=== PATIENT | male | born 1955 | race Caucasian/White ===

== ENCOUNTER 2020-01-20 16:40 | Outpatient (REF) | payer MEDICARE, SELFPAY ==
[2020-01-20 18:04] LABS: MANUAL DIFF FLAG NO
[2020-01-20 18:07] LABS: Basophils Absolute Auto 0.1 X10*3/uL (0.0-0.2); Eosinophils Absolute Auto 0.9 X10*3/uL (0.0-0.4); Eosinophils Percent Auto 11.5 % (0-4); Hematocrit 36.6 % (42-52); Hemoglobin 12.1 g/dl (14.0-18.0); Imm Gran Abs Auto 0.02 X10*3/uL (0.00-0.03); Imm Gran Pct Auto 0.3 % (0.0-0.4); Lymphocytes Absolute Auto 1.8 X10*3/uL (1.2-4.9); Lymphocytes Percent Auto 22.8 % (20-40); Mean Corpuscular HGB Conc 33.1 g/dl (31.0-36.0); Mean Corpuscular Volume 93.8 fL (80-98); Mean Platelet Volume 10.6 fL (9.4-12.4); Monocytes Percent Auto 12.3 % (2-11); Neutrophils Percent Auto 52.1 % (45-73); Platelet Count 304 X10*3/uL (160-400); Red Cell Distribution Width 14.2 % (11.0-16.0); White Blood Count 7.7 X10*3/uL (4.8-10.8)
[2020-01-20 18:48] LABS: Alanine Aminotransferase 18 U/L (0-40); Albumin Level 4.7 g/dL (3.5-5.0); Alkaline Phosphatase 100 U/L (39-117); Anion Gap 14 (12-20); Aspartate Amino Transferase 31 U/L (5-37); Bilirubin Total 0.8 mg/dL (0.0-1.0); Blood Urea Nitrogen 23 mg/dL (9-16); Calcium 9.5 mg/dL (8.4-10.2); Carbon Dioxide 25 mmol/L (22-29); Chloride 101 mmol/L (96-108); Cholesterol 151 mg/dL; Estimated Glomerular Filt Rate 54; Glucose Fasting 102 mg/dL (60-99); HDL Cholesterol 95 mg/dL; LDL Cholesterol Calculated 41 mg/dl; Potassium 4.5 mmol/l (3.3-5.1); Sodium 135 mmol/L (135-145); Triglycerides 76 mg/dL
== END 2020-01-20 16:41 | disposition home or self-care (01) ==
LOC: HO.LAB 16:40
PROVIDERS: Visit Provider Internal Medicine
DX: I10 Essential (primary) hypertension (principal); E78.5 Hyperlipidemia, unspecified
CPT/HCPCS: 36415; 80053; 80061; 85025

== ENCOUNTER → 2020-04-12 14:11 | Outpatient (BNVA) | payer MEDICARE, SELFPAY | PROVIDERS: PCP Internal Medicine; Visit Provider Hospitalist | DX: G47.33 Obstructive sleep apnea (adult) (pediatric) (principal); R91.8 Other nonspecific abnormal finding of lung field; R05 Cough; J44.9 Chronic obstructive pulmonary disease, unspecified | CPT/HCPCS: 99212 ==

== ENCOUNTER 2020-05-04 12:44 | Outpatient (REF) | payer MEDICARE, SELFPAY ==
--- NOTE | ~2020-05-04 | CT_ITS ---
EXAMINATION: CT CHEST WITHOUT CONTRAST CLINICAL INFORMATION: Obstructive sleep apnea COMPARISON: Previous chest CT September 2018 TECHNIQUE: Multidetector volumetric CT imaging of the chest was done. Axial MIP volume rendering provided. Sagittal and coronal reformatted images were obtained. This CT examination was performed using dose optimization techniques as appropriate, variously including the following: *Automated exposure control *Adjustment of mA and/or kV according to patient size (this includes techniques or standardized protocols for targeted exams where dose is matched to indication/reason for exam; i.e. extremities or head) *Use of iterative reconstruction technique DLP: 289 mGy-cm FINDINGS: LUNGS: There is a 0.6 x 1 cm abnormal parenchymal density in the right upper lobe axial image 184 series 5 that is stable. There is a 6 mm peripheral or subpleural right upper lobe nodule adjacent to the major fissure probably representing a subpleural lymph node axial image 261 series 5 that is stable. There is scarring or chronic subsegmental atelectasis in the right middle lobe that is stable. There are increased peripheral interstitial markings in the right lower lobe and some traction bronchiolectasis and small calcifications and subtler changes of increased peripheral reticulation in the peripheral or subpleural left lower lobe questionable for mild interstitial disease. No endobronchial or endotracheal lesion is seen. MEDIASTINUM: There are stable mediastinal lymphadenopathy. The heart does not appear enlarged. There is coronary artery calcification. The ascending thoracic aorta is upper normal in size. There is no pericardial effusion. PLEURA: There is no pleural effusion. No pleural mass or thickening. AXILLA: No lymphadenopathy. UPPER ABDOMEN: There is a 3 cm cyst in the upper pole of the left kidney that is stable. There is a 1.7 cm high attenuation lesion exophytic to the medial upper pole the right kidney that is stable and may represent a hyperdense cyst. There is diverticulosis of the colon. OSSEOUS STRUCTURES: There are degenerative changes of the spine and shoulders. There are old left rib fractures. There are are postsurgical changes to the lower cervical spine. There is a 4 mm anterior subluxation of C6 and C7 with respect to T1 that is unchanged. CT/CT chest wo con IMPRESSION: Stable abnormal parenchymal density in the right upper lobe and probable peripheral or subpleural lymph node in the right upper lobe adjacent to the major fissure. Question mild interstitial changes lung bases, right greater than left. Moderate coronary artery calcification and upper normal-size ascending thoracic aorta..
== END 2020-05-04 12:45 | disposition home or self-care (01) ==
LOC: HO.CT 12:44
PROVIDERS: Visit Provider Hospitalist
DX: G47.33 Obstructive sleep apnea (adult) (pediatric) (principal); R91.8 Other nonspecific abnormal finding of lung field
CPT/HCPCS: 71250

== ENCOUNTER 2021-03-17 14:19 | Outpatient (REF) | payer MEDICARE, SELFPAY ==
[2021-03-17 17:04] LABS: Alanine Aminotransferase 39 U/L (0-40); Anion Gap 13 (12-20); Aspartate Amino Transferase 44 U/L (5-37); Blood Urea Nitrogen 48 mg/dL (9-16); Calcium 9.9 mg/dL (8.4-10.2); Carbon Dioxide 28 mmol/L (22-29); Chloride 102 mmol/L (96-108); Cholesterol 186 mg/dL; Estimated Glomerular Filt Rate 50; Glucose Fasting 103 mg/dL (60-99); HDL Cholesterol 89 mg/dL; LDL Cholesterol Calculated 86 mg/dl; Potassium 4.9 mmol/L (3.3-5.1); Sodium 138 mmol/L (135-145); Triglycerides 59 mg/dL
== END 2021-03-17 14:20 | disposition home or self-care (01) ==
LOC: HO.HMGCLDS 14:19
PROVIDERS: PCP Internal Medicine; Visit Provider Internal Medicine
DX: E78.5 Hyperlipidemia, unspecified (principal); I10 Essential (primary) hypertension
CPT/HCPCS: 36415; 80048; 80061; 84450; 84460

== ENCOUNTER 2022-01-09 12:37 | Outpatient (REF) | payer MEDICARE, SELFPAY ==
[2022-01-09 14:31] LABS: MANUAL DIFF FLAG NO
[2022-01-09 14:40] LABS: Basophils Absolute Auto 0.1 X10*3/uL (0.0-0.2); Basophils Percent Auto 0.7 % (0-2); Eosinophils Absolute Auto 0.3 X10*3/uL (0.0-0.4); Eosinophils Percent Auto 4.6 % (0-4); Hemoglobin 11.5 g/dl (14.0-18.0); Imm Gran Abs Auto 0.04 X10*3/uL (0.00-0.03); Imm Gran Pct Auto 0.5 % (0.0-0.4); Lymphocytes Absolute Auto 0.9 X10*3/uL (1.2-4.9); Mean Corpuscular HGB Conc 34.8 g/dl (31.0-36.0); Mean Corpuscular Volume 91.9 fL (80.0-98.0); Mean Platelet Volume 10.4 fL (9.4-12.4); Monocytes Absolute Auto 1.1 X10*3/uL (0.1-1.2); Monocytes Percent Auto 15.3 % (2-11); Neutrophils Percent Auto 66.9 % (45-73); Platelet Count 277 X10*3/uL (160-400); Red Blood Count 3.59 X10*6/uL (4.60-5.80); Red Cell Distribution Width 13.9 % (11.0-16.0); White Blood Count 7.5 X10*3/uL (4.8-10.8)
[2022-01-09 14:57] LABS: Alanine Aminotransferase 30 U/L (0-40); Anion Gap 17 (12-20); Aspartate Amino Transferase 50 U/L (5-37); Blood Urea Nitrogen 44 mg/dL (9-16); Carbon Dioxide 26 mmol/L (22-29); Chloride 97 mmol/L (96-108); Cholesterol 204 mg/dL; Estimated Glomerular Filt Rate 47; Glucose Fasting 103 mg/dL (60-99); HDL Cholesterol 104 mg/dL; Iron 133 mcg/dL (45-160); LDL Cholesterol Calculated 87 mg/dl; Percent Iron Saturation 37 % (15-50); Potassium 4.9 mmol/L (3.3-5.1); Sodium 135 mmol/L (135-145); Total Iron Binding Capacity 358 mcg/dL (228-428); Triglycerides 67 mg/dL; Unsaturated Iron Binding 225 ug/dL; Uric Acid 3.8 mg/dL (3.4-7.0)
[2022-01-09 15:14] LABS: PSA,Total (Free>4and<10) 0.93 ng/mL (0.00-4.00)
[2022-01-09 15:35] LABS: Estimated Average Glucose 100 mg/dL; Hemoglobin A1c % 5.1 %
== END 2022-01-09 12:38 | disposition home or self-care (01) ==
LOC: HO.HMGCLDS 12:37
PROVIDERS: PCP Internal Medicine; Visit Provider Internal Medicine
DX: Z12.5 Encounter for screening for malignant neoplasm of prostate (principal); D64.9 Anemia, unspecified; E78.5 Hyperlipidemia, unspecified; I10 Essential (primary) hypertension; N40.1 Benign prostatic hyperplasia with lower urinary tract symptoms; R35.1 Nocturia; R73.01 Impaired fasting glucose; Z87.39 Personal history of other diseases of the musculoskeletal system and connective tissue
CPT/HCPCS: 36415; 80048; 80061; 83036; 83540; 84153; 84450; 84460; 84550; 85025

== ENCOUNTER 2022-06-13 14:19 | Outpatient (REF) | payer MEDICARE, SELFPAY ==
[2022-06-13 17:10] LABS: MANUAL DIFF FLAG NO
[2022-06-13 17:24] LABS: Basophils Absolute Auto 0.1 X10*3/uL (0.0-0.2); Basophils Percent Auto 0.9 % (0-2); Eosinophils Absolute Auto 0.4 X10*3/uL (0.0-0.4); Eosinophils Percent Auto 6.2 % (0-4); Hematocrit 35.5 % (42.0-52.0); Hemoglobin 11.7 g/dl (14.0-18.0); Imm Gran Abs Auto 0.04 X10*3/uL (0.00-0.03); Imm Gran Pct Auto 0.6 % (0.0-0.4); Lymphocytes Absolute Auto 1.4 X10*3/uL (1.2-4.9); Lymphocytes Percent Auto 21.3 % (20-40); Mean Corpuscular Hemoglobin 29.9 pg (27.0-33.0); Mean Corpuscular Volume 90.8 fL (80.0-98.0); Mean Platelet Volume 10.7 fL (9.4-12.4); Monocytes Absolute Auto 1.2 X10*3/uL (0.1-1.2); Monocytes Percent Auto 18.4 % (2-11); Neutrophils Absolute Auto 3.4 x10*3/uL (2.0-8.3); Neutrophils Percent Auto 52.6 % (45-73); Platelet Count 324 X10*3/uL (160-400); Red Blood Count 3.91 X10*6/uL (4.60-5.80); Red Cell Distribution Width 14.8 % (11.0-16.0); White Blood Count 6.4 X10*3/uL (4.8-10.8)
[2022-06-13 17:48] LABS: Alanine Aminotransferase 38 U/L (0-40); Anion Gap 14 (12-20); Aspartate Amino Transferase 49 U/L (5-37); Blood Urea Nitrogen 36 mg/dL (9-16); Calcium 9.6 mg/dL (8.4-10.2); Carbon Dioxide 28 mmol/L (22-29); Chloride 99 mmol/L (96-108); Cholesterol 201 mg/dL; Estimated Glomerular Filt Rate 47; Glucose Fasting 105 mg/dL (60-99); HDL Cholesterol 97 mg/dL; Iron 42 mcg/dL (45-160); LDL Cholesterol Calculated 89 mg/dl; PSA,Total (Free>4and<10) 0.84 ng/mL (0.00-4.00); Percent Iron Saturation 13 % (15-50); Potassium 4.9 mmol/L (3.3-5.1); Sodium 136 mmol/L (135-145); Total Iron Binding Capacity 324 mcg/dL (228-428); Triglycerides 75 mg/dL; Unsaturated Iron Binding 282 ug/dL; Uric Acid 3.5 mg/dL (3.4-7.0)
== END 2022-06-13 14:20 | disposition home or self-care (01) ==
LOC: HO.HMGCLDS 14:19
PROVIDERS: PCP Internal Medicine; Visit Provider Internal Medicine
DX: D64.9 Anemia, unspecified (principal); J44.9 Chronic obstructive pulmonary disease, unspecified; F41.1 Generalized anxiety disorder; E78.5 Hyperlipidemia, unspecified; I10 Essential (primary) hypertension; N40.1 Benign prostatic hyperplasia with lower urinary tract symptoms; R35.1 Nocturia; Z12.5 Encounter for screening for malignant neoplasm of prostate; Z87.39 Personal history of other diseases of the musculoskeletal system and connective tissue
CPT/HCPCS: 36415; 80048; 80061; 83540; 84153; 84450; 84460; 84550; 85025

== ENCOUNTER 2023-04-11 13:51 | Outpatient (REF) | payer MEDICARE, SELFPAY ==
[2023-04-11 16:02] LABS: MANUAL DIFF FLAG NO
[2023-04-11 16:16] LABS: Basophils Absolute Auto 0.1 X10*3/uL (0.0-0.2); Basophils Percent Auto 0.7 % (0-2); Eosinophils Absolute Auto 0.5 X10*3/uL (0.0-0.4); Hematocrit 34.7 % (42.0-52.0); Hemoglobin 11.6 g/dl (14.0-18.0); Imm Gran Abs Auto 0.02 X10*3/uL (0.00-0.03); Imm Gran Pct Auto 0.3 % (0.0-0.4); Lymphocytes Absolute Auto 1.5 X10*3/uL (1.2-4.9); Lymphocytes Percent Auto 21.3 % (20-40); Mean Corpuscular HGB Conc 33.4 g/dl (31.0-36.0); Mean Corpuscular Volume 95.9 fL (80.0-98.0); Mean Platelet Volume 10.8 fL (9.4-12.4); Monocytes Absolute Auto 1.2 X10*3/uL (0.1-1.2); Monocytes Percent Auto 17.4 % (2-11); Neutrophils Absolute Auto 3.7 x10*3/uL (2.0-8.3); Neutrophils Percent Auto 53.3 % (45-73); Platelet Count 294 X10*3/uL (160-400); Red Blood Count 3.62 X10*6/uL (4.60-5.80); Red Cell Distribution Width 14.7 % (11.0-16.0); White Blood Count 6.9 X10*3/uL (4.8-10.8)
[2023-04-11 16:38] LABS: Alanine Aminotransferase 35 U/L (0-40); Aspartate Amino Transferase 51 U/L (5-37); Cholesterol 170 mg/dL (<200); HDL Cholesterol 94 mg/dL (>40); Iron 45 mcg/dL (45-160); LDL Cholesterol Calculated 67 mg/dL (<100); Percent Iron Saturation 14 % (15-50); Total Iron Binding Capacity 320 mcg/dL (228-428); Triglycerides 48 mg/dL (<150); Unsaturated Iron Binding 275 ug/dL
[2023-04-11 16:46] LABS: Vitamin D 25-OH Total 50.7 ng/mL (>30)
[2023-04-11 16:50] LABS: Uric Acid 4.2 mg/dL (3.4-7.0)
== END 2023-04-11 13:52 | disposition home or self-care (01) ==
LOC: HO.HMGCLDS 13:51
PROVIDERS: PCP Internal Medicine; Visit Provider Internal Medicine
DX: N28.9 Disorder of kidney and ureter, unspecified (principal); D64.9 Anemia, unspecified; E78.5 Hyperlipidemia, unspecified; I10 Essential (primary) hypertension; Z87.39 Personal history of other diseases of the musculoskeletal system and connective tissue
CPT/HCPCS: 36415; 80061; 82306; 83540; 84450; 84460; 84550; 85025

== ENCOUNTER 2023-05-14 10:08 | Outpatient (AMB) | payer MEDICARE, SELFPAY ==
--- NOTE | 2023-05-14 10:13 | MHC.PC.OV ---
Vital Signs 05/14/23 10:15 Height 5 ft 10 in Weight 206 lb BMI 29.6 BP 135/70 Blood Pressure Location Lt brachial Position Sitting Pulse 65 Pulse Source Pulse Oximeter Pulse Oximetry (%) 97 Oxygen Delivery Method Room Air Intake Visit Reasons: f/u labs Intake Note: Pt is here today for his lab results Allergies amoxicillin [Augmentin] Allergy (Unknown, Verified 05/14/23 10:17) hives clavulanic acid [Augmentin] Allergy (Unknown, Verified 05/14/23 10:17) hives levofloxacin [Levaquin] Allergy (Unknown, Verified 05/14/23 10:17) hives Penicillins [PENICILLINS] Allergy (Unknown, Unverified 05/14/23 10:17) ANAPHYLAXIS Sulfa (Sulfonamide Antibiotics) Allergy (Unknown, Verified 05/14/23 10:17) rash Medication List - Last Reconciled 05/14/23 by Yaquelin Lima MD allopurinol 300 mg PO DAILY amlodipine 10 mg PO DAILY atorvastatin 40 mg PO DAILY finasteride 5 mg PO DAILY hydroxyzine HCl 25 mg PO BID PRN irbesartan 300 mg PO DAILY multivitamin 1 tab PO DAILY omeprazole 20 mg PO DAILY paroxetine HCl 40 mg PO DAILY zolpidem 10 mg PO BEDTIME PRN Tobacco use date assessed: 05/14/23 Fall risk assessment: No Falls in past year Last assessed Fall Risk: 05/14/23 Dental Screening Dental Screen Date: 05/14/23 Did you have a dental visit in the last 12 months?: No Was dental information given to patient?: Patient has dentist HPI f/u labs HPI Details 67-year-old male with hypertension, hyperlipidemia, benign prostatic hyperplasia, and generalized anxiety disorder, here today for follow-up. He has been compliant with taking his medications, had recent fasting labs done which showed presence of anemia with hemoglobin /hematocrit at 11.6 and 34.7% respectively. Denies any unusual bleeding however he is overdue for his screening colonoscopy. Latest fasting labs also showed fasting lipids, uric acid level, vitamin-D are all within normal limits. Has been complaining of intermittent episodes of shortness of breath especially on moderate exertion., noted to have a systolic murmur and bilateral carotid bruits on exam today. Denies having chest pain, no lightheadedness, or palpitations. Has benign prostatic hyperplasia previously seen by Dr. Anderson in 2019 but was lost to follow-up after the pandemic currently on finasteride. Last PSA a year ago was within normal limits. Has chronic insomnia for which he takes zolpidem almost on a nightly basis. [facility] Medical History (Updated 05/19/23 @ 17:29 by Yaquelin Lima MD) Chronic insomnia Sensorineural hearing loss (SNHL) of both ears Systolic murmur of aorta Bilateral carotid bruits Renal insufficiency Insomnia Hx of gout Anemia Decreased hearing BPH associated with nocturia COPD (chronic obstructive pulmonary disease) Cough RITA (obstructive sleep apnea) Pulmonary nodules Dyslipidemia Essential hypertension Surgical History History of surgery History of arthroscopy of left knee History of inguinal hernia History of ankle surgery Family History Father Cancer of prostate Alcoholism HTN (hypertension) CVD (cardiovascular disease) Mother COPD (chronic obstructive pulmonary disease) Cancer of pancreas Sister Depression Brother No problems noted. Sister No problems noted. Daughter No problems noted. Social History Housing: Condominium Patient Tobacco Use Status: Former Tobacco user e-Cigarette/Vaping Use: Never Used service: No Current occupational status: retired Cognitive needs: No Hearing needs: No Vision needs: Yes Questionnaire PHQ-9 Over the last 2 weeks, how often have you been bothered by any of the following problems? 1. Little interest or pleasure in doing things: not at all 2. Feeling down, depressed, or hopeless: not at all 3. Trouble falling or staying asleep, or sleeping too much: not at all 4. Feeling tired or having little energy: not at all 5. Poor appetite or overeating: not at all 6. Feeling bad about yourself - or that you are a failure or have let yourself or your family down: not at all 7. Trouble concentrating on things, such as reading the newspaper or watching television: not at all 8. Moving or speaking so slowly that other people could have noticed. Or the opposite - being so fidgety or restless that you have been moving around a lot more than usual: not at all 9. Thoughts that you would be better off or of hurting yourself in some way: not at all Total score: 0 Depression Screening Interpretation: Negative Depression Screening Done: Yes 56031 - PHQ-9 Billing: Yes Source: Developed by Drs. Nash Rose, Pinky Huerta, Chilango Torres and colleagues, with an educational nanci from [employer]. Thrive Questionnaire Date Thrive assessed: 05/14/23 I am a: Patient What is your living situation today?: I have a steady place to live Within the past 12 months, did the food you bought not last and you didn't have the money to get more?: Never true Within the past 12 months, did you worry whether your food would run out before you got money to buy more?: Never true Do you have trouble paying for medicines?: No Do you have trouble getting transportation to medical appointments?: No Do you have trouble paying your heating and electricity bill?: No Do you have trouble taking care of your child, family member or friend?: No Do you have trouble with day-to-day activities such as bathing, preparing meals, shopping, managing finances, etc.?: No Are you currently unemployed and looking for a job?: No Are you interested in more education?: No THRIVE Score: 0 AUDIT C Alcohol Use Questionnaire (AUDIT-C) 1. How often do you have a drink containing alcohol?: 2-3 times a week 2. How many drinks containing alcohol do you have on a typical day when you are drinking?: 3 or 4 3. How often do you have six or more drinks on one occasion?: Monthly Total Score: 6 EN-7 AMB Questionnaire EN-7 Date EN - 7 assessed: 05/14/23 Feeling nervous, anxious, or on edge: 0 = Not at all Not being able to stop or control worryin = Not at all Worrying too much about different things: 0 = Not at all Trouble relaxin = Not at all Being so restless that it is hard to sit still: 0 = Not at all Becoming easily annoyed or irritable: 0 = Not at all Feeling afraid as if something awful might happen: 0 = Not at all Total EN-7 score (0-4 normal; 5-9 mild; 10-14 moderate; 15-21 severe): 0 Source: Developed by Drs. Nash Rose, Pinky Huerta, Chilango Torres and colleagues, with an educational nanci from [employer]. EN-7 Assessment Billing EN-7 Assessment Tool: EN-7 Assessment 35185 Review of Systems Const Reports difficulty sleeping, Denies frequent falls, Denies headache(s), Denies night sweats, Denies poor appetite and Denies weakness Eyes Denies change in vision ENT Denies vertigo, Denies dizziness, Denies headache(s), Denies nasal congestion and Denies nasal discharge Card Denies chest pain, Denies rapid heart rate, Denies irregular heart rhythm, Denies lightheadedness and Denies dyspnea Resp Denies chest congestion, Denies cough, Denies dyspnea and Denies wheezing GI Denies abdominal pain Denies difficulty urinating, Reports urinary frequency and Denies urinary hesitancy Musc Denies no additional complaints Skin/Breast Denies lesions and Denies rash Neuro Denies vertigo, Denies dizziness, Denies frequent falls, Denies headache(s) and Denies weakness Psych Reports no additional complaints Endo Denies polyphagia and Denies polydipsia Deniz/Lymph Denies easy bleeding and Denies easy bruising Aller/Immun Denies wheezing Physical exam (Primary Care) Vital Signs: Last Vital Signs Pulse 65 05/14/23 10:15 BP 135/70 05/14/23 10:15 Pulse Ox 97 05/14/23 10:15 Oxygen Delivery Method Room Air 05/14/23 10:15 BMI result Body Mass Index 29.6 Tobacco/Smoking Status: Tobacco use Status Tobacco use date assessed 05/14/23 05/14/23 10:18 Patient Tobacco Use Status Former Tobacco user 05/14/23 10:13 e-Cigarette/Vaping Use Never Used 05/14/23 10:13 PHQ-9: PHQ-9 Score PHQ-9: Total score 0 05/19/23 15:42 Depression Screening Interpretation: Negative Thrive Assessment: Date of Thrive Assessment Date Thrive assessed 05/14/23 05/14/23 10:20 Results Reviewed Results Reviewed: Name: Gerry Brennan Age/Sex: 67/M : 1955 Unit#: [id number] Attend Dr: Yaquelin Lima MD Re04/11/23 Status: DEP REF Location: [facility] Disch: SPEC : [id number] LISA: 04/11/23 STATUS: COMP REQ : [id number] RECD: 04/11/23-[address]: Yaquelin Lima MD COMP: 04/11/23 ENTERED: 04/11/23 [facility] DR: ORDERED: CBC Auto Diff Test Result Flag Reference WBC 6.9 4.8-10.8 X10*3/uL RBC 3.62 L 4.60-5.80 X10*6/uL HGB 11.6 L 14.0-18.0 g/dl HCT 34.7 L 42.0-52.0 % MCV 95.9 80.0-98.0 fL MCH 32.0 27.0-33.0 pg MCHC 33.4 31.0-36.0 g/dl RDW 14.7 11.0-16.0 % PLT 294 160-400 X10*3/uL MPV 10.8 9.4-12.4 fL Neut Pct Auto 53.3 45-73 % ImGran Pct Auto 0.3 0.0-0.4 % Lymp Pct Auto 21.3 20-40 % [place] Pct Auto 17.4 H 2-11 % Eos Pct Auto 7.0 H 0-4 % Baso Pct Auto 0.7 0-2 % NRBC Pct Auto 0.0 0.0-0.2 /100WBC ANC Neut Abs # 3.7 2.0-8.3 x10*3/uL ImGran Abs Auto 0.02 0.00-0.03 X10*3/uL Lymph Abs Auto 1.5 1.2-4.9 X10*3/uL [place] Abs Auto 1.2 0.1-1.2 X10*3/uL Eos Abs Auto 0.5 H 0.0-0.4 X10*3/uL Baso Abs Auto 0.1 0.0-0.2 X10*3/uL NRBC Abs Auto 0.000 0.0-0.012 X10*3/uL NTERED: 04/11/23-1353 [facility] DR: ORDERED: Uric, IRON PROF, AST, ALT, Lipid Panel, Vitamin D 25-OH Test Result Flag Reference Uric Acid 4.2 3.4-7.0 mg/dL Iron 45 45-160 mcg/dL TIBC 320 228-428 mcg/dL Saturation 14 L 15-50 % UIBC 275 ug/dL AST (GOT) 51 H 5-37 U/L ALT (GPT) 35 0-40 U/L Triglyceride 48 <150 mg/dL Desirable Triglyceride: less than 150 mg/dL Borderline High Triglyceride 150-199 mg/dL High Triglyceride: 200-499 mg/dL Very High Triglyceride: greater than or equal to 5OO mg/dL Cholesterol 170 <200 mg/dL Desirable Cholesterol: less than 200 mg/dL Borderline High Cholesterol: 200-239 mg/dL High Cholesterol: greater than 239 mg/dL LDL Calculated 67 <100 mg/dL Desirable LDL: less than 100 mg/dL Near Optimal/Above Optimal LDL: 110-129 mg/dL Borderline High LDL: 130-159 mg/dL High LDL: 160-189 mg/dL Very High LDL: greater than or equal to 190 mg/dL HDL 94 >40 mg/dL Desirable HDL: greater than 40 mg/dL Note: This HDL assay may give artificially low results in patients with liver disease. Vit D 25-OH Tot 50.7 >30 ng/mL Health Based Reference Values* < 20 ng/mL Deficient 20-30 ng/mL Insufficient > 30 ng/mL Sufficient Normal fasting lipids, Assessment and Plan Assessment & Plan (1) Anemia: Code(s): D64.9 - Anemia, unspecified Qualifiers: Anemia type: unspecified type Qualified Code(s): D64.9 - Anemia, unspecified Plan: Discuss recent lab results with patient which showed presence of anemia with low iron, colonoscopy screening ordered (2) Generalized anxiety disorder: Code(s): F41.1 - Generalized anxiety disorder Plan: Stable and controlled on paroxetine 40 mg daily, will continue (3) Dyslipidemia: Code(s): E78.5 - Hyperlipidemia, unspecified Plan: Latest fasting labs showed LDL cholesterol at 67 mg/dL, with triglycerides 48 mg/dL and HDL cholesterol at 94 mg/dL. Continue with atorvastatin 40 mg daily, in addition to adherence to a low-cholesterol diet and getting regular exercise. Repeat fasting lipids in 3 months (4) Colon cancer screening: Code(s): Z12.11 - Encounter for screening for malignant neoplasm of colon Plan: referred to [facility] for screening colonoscopy ordered (5) Bilateral carotid bruits: Code(s): R09.89 - Other specified symptoms and signs involving the circulatory and respiratory systems Plan: Carotid ultrasound bilateral ordered (6) Systolic murmur of aorta: Code(s): I35.8 - Other nonrheumatic aortic valve disorders Plan: Transthoracic echocardiogram ordered (7) Essential hypertension: Code(s): I10 - Essential (primary) hypertension Plan: Blood pressure controlled, continued on irbesartan 300 mg daily and amlodipine 10 mg once a day (8) Shortness of breath on exertion: Code(s): R06.02 - Shortness of breath Plan: Transthoracic echocardiogram ordered (9) Renal insufficiency: Code(s): N28.9 - Disorder of kidney and ureter, unspecified Plan: Repeat compressive metabolic panel in 3 months, avoidance of NSAIDs advised (10) Hx of gout: Code(s): Z87.39 - Personal history of other diseases of the musculoskeletal system and connective tissue Plan: No recent attacks of gouty arthritis, will continue on allopurinol 200 mg daily (11) BPH associated with nocturia: Code(s): N40.1 - Benign prostatic hyperplasia with lower urinary tract symptoms; R35.1 - Nocturia Plan: Previously was seen by Dr. Anderson in 2019, started on finasteride, has lost to follow -up due to the pandemic, advised to continue with finasteride and schedule appointment for follow-up with Dr. Anderson (12) Chronic insomnia: Code(s): F51.04 - Psychophysiologic insomnia Plan: Continued on zolpidem, has been diagnosed to have obstructive sleep apnea unable to tolerate CPAP Orders: Orders CA echo transthoracic complete 05/14/23 I10 - Essential (primary) hypertension, I35.8 - Other nonrheumatic aortic valve disorders, R06.02 - Shortness of breath Comprehensive [place]. Panel Fast 08/03/23 D64.9 - Anemia, unspecified, E78.5 - Hyperlipidemia, unspecified, I10 - Essential (primary) hypertension, I35.8 - Other nonrheumatic aortic valve disorders, N28.9 - Disorder of kidney and ureter, unspecified, N40.1 - Benign prostatic hyperplasia with lower urinary tract symptoms, R09.89 - Other specified symptoms and signs involving the circulatory and respiratory systems, R35.1 - Nocturia, Z12.5 - Encounter for screening for malignant neoplasm of prostate, Z87.39 - Personal history of other diseases of the musculoskeletal system and connective tissue US carotid duplex BI 05/14/23 R09.89 - Other specified symptoms and signs involving the circulatory and respiratory systems Complete Blood Count Auto Diff 08/03/23 D64.9 - Anemia, unspecified, E78.5 - Hyperlipidemia, unspecified, I10 - Essential (primary) hypertension, I35.8 - Other nonrheumatic aortic valve disorders, N28.9 - Disorder of kidney and ureter, unspecified, N40.1 - Benign prostatic hyperplasia with lower urinary tract symptoms, R09.89 - Other specified symptoms and signs involving the circulatory and respiratory systems, R35.1 - Nocturia, Z12.5 - Encounter for screening for malignant neoplasm of prostate, Z87.39 - Personal history of other diseases of the musculoskeletal system and connective tissue IRON PROFILE 08/03/23 D64.9 - Anemia, unspecified, E78.5 - Hyperlipidemia, unspecified, I10 - Essential (primary) hypertension, I35.8 - Other nonrheumatic aortic valve disorders, N28.9 - Disorder of kidney and ureter, unspecified, N40.1 - Benign prostatic hyperplasia with lower urinary tract symptoms, R09.89 - Other specified symptoms and signs involving the circulatory and respiratory systems, R35.1 - Nocturia, Z12.5 - Encounter for screening for malignant neoplasm of prostate, Z87.39 - Personal history of other diseases of the musculoskeletal system and connective tissue Hemoglobin A1c 08/03/23 D64.9 - Anemia, unspecified, E78.5 - Hyperlipidemia, unspecified, I10 - Essential (primary) hypertension, I35.8 - Other nonrheumatic aortic valve disorders, N28.9 - Disorder of kidney and ureter, unspecified, N40.1 - Benign prostatic hyperplasia with lower urinary tract symptoms, R09.89 - Other specified symptoms and signs involving the circulatory and respiratory systems, R35.1 - Nocturia, Z12.5 - Encounter for screening for malignant neoplasm of prostate, Z87.39 - Personal history of other diseases of the musculoskeletal system and connective tissue Lipid Panel 08/03/23 D64.9 - Anemia, unspecified, E78.5 - Hyperlipidemia, unspecified, I10 - Essential (primary) hypertension, I35.8 - Other nonrheumatic aortic valve disorders, N28.9 - Disorder of kidney and ureter, unspecified, N40.1 - Benign prostatic hyperplasia with lower urinary tract symptoms, R09.89 - Other specified symptoms and signs involving the circulatory and respiratory systems, R35.1 - Nocturia, Z12.5 - Encounter for screening for malignant neoplasm of prostate, Z87.39 - Personal history of other diseases of the musculoskeletal system and connective tissue PSA,Total (Free>4and<10) 08/02/ D64.9 - Anemia, unspecified, E78.5 - Hyperlipidemia, unspecified, I10 - Essential (primary) hypertension, I35.8 - Other nonrheumatic aortic valve disorders, N28.9 - Disorder of kidney and ureter, unspecified, N40.1 - Benign prostatic hyperplasia with lower urinary tract symptoms, R09.89 - Other specified symptoms and signs involving the circulatory and respiratory systems, R35.1 - Nocturia, Z12.5 - Encounter for screening for malignant neoplasm of prostate, Z87.39 - Personal history of other diseases of the musculoskeletal system and connective tissue Referrals Gastroenterology Referral D64.9 - Anemia, unspecified, Z12.11 - Encounter for screening for malignant neoplasm of colon Medications: Refilled allopurinol 30 day supply while pt waits for mail order delivery 300 mg PO DAILY 90 tabs 4RF atorvastatin 40 mg PO DAILY 90 tabs 3RF irbesartan 300 mg PO DAILY 90 tabs 3RF amlodipine 10 mg PO DAILY 90 tabs 3RF finasteride 5 mg PO DAILY 90 tabs 3RF omeprazole 20 mg PO DAILY 90 caps 2RF paroxetine HCl 40 mg PO DAILY 90 tabs 3RF Coding Level of Care Code Est Pt Level 4 (23118) Diagnoses Anemia, unspecified type D64.9 Anemia type: unspecified type Generalized anxiety disorder F41.1 Dyslipidemia E78.5 Colon cancer screening Z12.11 Bilateral carotid bruits R09.89 Systolic murmur of aorta I35.8 Essential hypertension I10 Shortness of breath on exertion R06.02 Renal insufficiency N28.9 Hx of gout Z87.39 BPH associated with nocturia N40.1; R35.1 Chronic insomnia F51.04 Additional Codes EN-7 Assessment Billing - EN-7 Assessment Tool: EN-7 Assessment [id number] ([id number])
[2023-05-14 10:15] VITALS: BP 135/70; PULSE 65; O2SAT 97; BMI 29.6
== END 2023-05-14 15:42 | disposition home or self-care (01) ==
LOC: HO.HMGC 10:08
PROVIDERS: PCP Internal Medicine; Visit Provider Internal Medicine
DX: D64.9 Anemia, unspecified (principal); F41.1 Generalized anxiety disorder; E78.5 Hyperlipidemia, unspecified; Z12.11 Encounter for screening for malignant neoplasm of colon; R09.89 Other specified symptoms and signs involving the circulatory and respiratory systems; I35.8 Other nonrheumatic aortic valve disorders; I10 Essential (primary) hypertension; R06.02 Shortness of breath; N28.9 Disorder of kidney and ureter, unspecified; Z87.39 Personal history of other diseases of the musculoskeletal system and connective tissue; N40.1 Benign prostatic hyperplasia with lower urinary tract symptoms; R35.1 Nocturia
CPT/HCPCS: 99214

== ENCOUNTER → 2023-05-23 12:54 | Outpatient (REF) | payer MEDICARE, SELFPAY ==
--- NOTE | ~2023-05-23 | US_ITS ---
EXAMINATION: US EXTRACRANIAL CAROTID DUPLEX, BILATERAL CLINICAL INFORMATION: Systolic murmur. COMPARISON: None available. TECHNIQUE: Real-time ultrasound and Doppler techniques (integrating B-mode 2-D vascular images, Doppler spectral analysis and color-flow Doppler imaging) were utilized to interrogate the extracranial carotid arteries, the vertebral arteries and proximal subclavian arteries bilaterally. The degree of stenosis is determined by criteria similar to NASCET. FINDINGS: Right Side: 1. There is mild atherosclerotic plaque seen in the bifurcation/proximal ICA region. 2. The common carotid artery PSV proximally is 90 cm/s and distally 71 cm/s. 3. The proximal internal carotid artery velocities are 58 cm/s systolic and 12 cm/s diastolic. 4. The proximal external carotid artery PSV is 116 cm/s. 5. The vertebral artery shows antegrade flow. 6. The subclavian artery waveforms are normal. Left Side: 1. There is mild atherosclerotic plaque seen in the bifurcation/proximal ICA region. 2. The common carotid artery PSV proximally is 83 cm/s and distally 53 cm/s. 3. The proximal internal carotid artery velocities are 58 cm/s systolic and 16 cm/s diastolic. 4. The proximal external carotid artery PSV is 115 cm/s. 5. The vertebral artery shows antegrade flow. 6. The subclavian artery waveforms are normal. US/US carotid duplex BI IMPRESSION: 1. RIGHT: Minimal, non-hemodynamically significant stenosis of the proximal right internal carotid artery corresponding to a 0-49% stenosis by velocity criteria. 2. LEFT: Minimal, non-hemodynamically significant stenosis of the proximal left internal carotid artery corresponding to a 0-49% stenosis by velocity criteria.
--- NOTE | 2023-05-23 12:58 | CA_ITS ---
Transthoracic Echocardiogram Patient (Last, First, Middle): Gerry Brennan J Gender: Male Date of : 1955 Age: 67 Procedure Date: 05/23/2023 Procedure Type: Transthoracic Echocardiogram Location: OP Height: 177.8 cm Weight: 93.44 kg BSA: 2.11 m2 Heart Rate: bpm BP: 152 / 82 mmHg Pneumatic Hoist Operator: TO Referring MD: Yaquelin Lima MD Symptoms: I35.8 - Other nonrheumatic aortic valve disorders Study Quality: Technically Difficult/Contrast ECG Rhythm: Sinus Conclusions: - The left ventricular systolic function is normal. The visually estimated ejection fraction is between 55-60%. - There is moderate septal asymmetric hypertrophy. - There is mild aortic valve stenosis. There is mild aortic valve regurgitation. - There is mild dilatation of the ascending aorta measuring 4.30 cm. Findings Procedure Information Contrast agent, definity, is being given per protocol without apparent complications. The study quality is limited by patients body habitus. Left Ventricle Normal left ventricular cavity size. The left ventricular systolic function is normal. The visually estimated ejection fraction is between 55-60%. There is no evidence of regional wall motion abnormalities. Evidence suggests grade I (mild) diastolic dysfunction. There is moderate septal asymmetric hypertrophy. Right Ventricle Normal right ventricular cavity size and systolic function. Atria The left atrium is mildly dilated. The right atrium is normal in size. Aortic Valve There is a normal trileaflet aortic valve. There is mild calcification of the aortic valve. There is mild aortic valve stenosis. There is mild aortic valve regurgitation. Mitral Valve The mitral valve appears normal. There is mild mitral valve regurgitation. There is no mitral valve stenosis. Pulmonic Valve The pulmonic valve is likely normal. Tricuspid Valve There is trace tricuspid valve regurgitation. There is no evidence of pulmonary hypertension. Great Vessels The aortic arch is normal in size. There is mild dilatation of the ascending aorta measuring 4.30 cm. Venous The inferior vena cava is normal in size and collapses greater than 50% with inspiration. Pericardium/Pleural There is no evidence of pericardial effusion. Prior Study Comparison Changes noted compared to prior study dated: 10/25/2017. See comments on aortic valve/ascending aorta. Measurements M-Mode Liner Measurements Normals - Women/Men IVSd: 1.30 0.6-0.9/0.6-1.0 cm LVIDd: 5.30 3.9-5.3/4.2-5.9 cm LVIDs: 3.30 2.0-3.8 cm LVPWd: 1.30 0.6-0.9/0.6-1.0 cm Ao Root: 3.60 2.0-3.8 cm LA Diam: 3.50 2.7-3.8/3.0-4.0 cm 2D Linear Measurements IVSd: 4.40 0.6-0.9/0.6-1.0 cm LVOT Diam: 2.40 3.0+(-)1.3 cm 2D Systolic Function EF 4C: 51.80 >55% EF 2C: 56.40 >55% EF BiP: 53.10 >55% Mitral Valve MV Pk E: 0.62 MV PK A: 0.72 MV Decel Time: 179.00 E/A: 0.90 E'Lateral: 8.59 E'Medial: 5.44 E/E' Med: 11.40 E/E' Lat: 7.20 PHT: 52.00 MVA PHT: 4.23 Decel Pershing: 3.48 Aortic Valve AoV Pk Sean: 2.70 AoV Mn Sean: 1.97 AoV VTI: 0.63 AoV Pk Grad: 29.00 Aov Mn Grad: 17.00 KARLA Cont.VTI: 1.87 AI Pk Sean: 3.87 AI Pershing: 1.74 LVOT LVOT Pk Sean: 1.13 LVOT Mn Sean: 0.72 LVOT VTI: 0.26 LVOT Pk Grad: 5.00 LVOT Mn Grad: 2.00 LVOT Diam: 2.40 LVOT Area: 4.52 Diastolic Function MV Pk E: 0.62 MV Pk A: 0.72 E/A: 0.90 E'Medial: 5.44 E/E' Med: 11.40 E' Laterial: 8.59 E/E' Lat: 7.20 Right Ventricle TAPSE (mm): 24.30 TVS' Sean: 18.00 Tricuspid Valve TR Pk Sean: 1.76 TR Pk Grad: 12.00 RA Press: 3.00 RVSP: 15.00 Great Vessels Aorta Ao Root-MM: 3.60 2.0-3.7 cm Sinus of Valsalva: 3.62 2.0-3.5 cm Ao Asc: 4.30 2.1-3.4 cm Ao Arch: 2.90 Updated in Other Vendor System with Status of Final Vernon Ferrell MD electronically signed on 05/25/2023 12:57:27 PM with status of Final
== END ==
LOC: HO.CARD 12:54
PROVIDERS: PCP Internal Medicine; Visit Provider Internal Medicine
DX: R09.89 Other specified symptoms and signs involving the circulatory and respiratory systems (principal); I35.8 Other nonrheumatic aortic valve disorders; R06.02 Shortness of breath; I10 Essential (primary) hypertension
CPT/HCPCS: 93306; 93880; Q9957

== ENCOUNTER → 2023-05-23 12:58 | Outpatient (BNV) | payer MEDICARE, SELFPAY | PROVIDERS: PCP Internal Medicine; Visit Provider Internal Medicine | DX: I42.2 Other hypertrophic cardiomyopathy (principal); I35.2 Nonrheumatic aortic (valve) stenosis with insufficiency | CPT/HCPCS: 93306 ==

== ENCOUNTER 2023-08-12 12:37 | Outpatient (AMB) | payer MEDICARE, SELFPAY ==
--- NOTE | 2023-08-12 12:39 | MHC.OFFVIS ---
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 sob Allergies amoxicillin [Augmentin] Allergy (Unknown, Verified 05/14/23 10:17) hives clavulanic acid [Augmentin] Allergy (Unknown, Verified 05/14/23 10:17) hives levofloxacin [Levaquin] Allergy (Unknown, Verified 05/14/23 10:17) hives Penicillins [PENICILLINS] Allergy (Unknown, Unverified 05/14/23 10:17) ANAPHYLAXIS Sulfa (Sulfonamide Antibiotics) Allergy (Unknown, Verified 05/14/23 10:17) rash Medication List - Last Reconciled 08/12/23 by Vernon Ferrell MD allopurinol 300 mg PO DAILY amlodipine 10 mg PO DAILY atorvastatin 40 mg PO DAILY finasteride 5 mg PO DAILY hydroxyzine HCl 25 mg PO BID PRN irbesartan 300 mg PO DAILY multivitamin 1 tab PO DAILY omeprazole 20 mg PO DAILY paroxetine HCl 40 mg PO DAILY zolpidem 10 mg PO BEDTIME PRN HPI Comments Details: Gerry is here for consultation regarding shortness of breath. He states that he does have COPD at baseline but not usually short of breath. However, over the last few months, he has been having shortness of breath with activity. Also feeling some fatigue. No clear-cut anginal-type chest pains. No history of any coronary artery disease, myocardial infarction or cardiomyopathy. [facility] Medical History Dyspnea on minimal exertion Asymmetric septal hypertrophy Chronic insomnia Sensorineural hearing loss (SNHL) of both ears Systolic murmur of aorta Bilateral carotid bruits Renal insufficiency Insomnia Hx of gout Anemia Decreased hearing BPH associated with nocturia COPD (chronic obstructive pulmonary disease) Cough RITA (obstructive sleep apnea) Pulmonary nodules Dyslipidemia Essential hypertension Surgical History History of surgery History of arthroscopy of left knee History of inguinal hernia History of ankle surgery Family History Father Cancer of prostate Alcoholism HTN (hypertension) CVD (cardiovascular disease) Mother COPD (chronic obstructive pulmonary disease) Cancer of pancreas Sister Depression Brother No problems noted. Sister No problems noted. Daughter No problems noted. Social History Housing: Condominium Patient Tobacco Use Status: Former Tobacco user e-Cigarette/Vaping Use: Never Used service: No Current occupational status: retired Cognitive needs: No Hearing needs: No Vision needs: Yes Review of Systems Const Denies weakness ENT Denies dizziness Card Denies chest pain, Denies chest pain with activity, Denies syncope, Denies rapid heart rate, Denies pedal edema, Denies edema, Denies leg edema, Denies lightheadedness, Denies palpitations, Denies dyspnea, Denies dyspnea on exertion and Denies orthopnea Resp Denies cough, Denies dyspnea and Denies dyspnea on exertion GI Denies hematochezia and Denies change in stool character Musc Denies abnormal gait, Denies muscle cramps, Denies muscle weakness, Denies numbness, Denies radiating pain into limb and Denies tingling Neuro Denies abnormal gait, Denies dizziness, Denies syncope, Denies numbness, Denies tingling and Denies weakness Endo Denies palpitations Physical Exam Vital Signs: Last Vital Signs Pulse 83 08/12/23 12:40 BP 140/72 H 08/12/23 12:40 BMI result Body Mass Index 29.4 Const General: comfortable and no acute distress Orientation/consciousness: patient oriented x3 HEENT Other: Unremarkable Head: Yes normal to inspection Neck Neck: Yes normal visual inspection Chest Chest palpation & inspection: normal inspection of the chest Resp Auscultation: clear to auscultation bilaterally Cardio Palpation: normal PMI Heart sounds: S1 normal heart sound present, S2 normal heart sound present, no gallops, Murmur heart sound present systolic II/ and at the right sternal border and no rubs GI Palpation (GI): Soft to palpation Back/Spine/Pelvis Other: unremarkable Skin General skin exam: no rashes or lesions noted Neuro General: patient oriented x3 Extrem General: Yes normal to inspection Psych Mental Status: mental status grossly normal Office Procedures EKG Details: EKG with sinus rhythm at 83/Min; leftward axis; incomplete right bundle-branch block; LVH/repolarization changes. Normal AK/[place]. [id number], Complete Assessment & Plan Assessment & Plan (1) Shortness of breath: Code(s): R06.02 - Shortness of breath Category: Medical (2) Asymmetric septal hypertrophy: Code(s): I42.2 - Other hypertrophic cardiomyopathy Category: Medical (3) Nonrheumatic aortic (valve) stenosis: Code(s): I35.0 - Nonrheumatic aortic (valve) stenosis Category: Medical (4) Ascending aorta dilatation: Code(s): I77.810 - Thoracic aortic ectasia Category: Medical (5) Essential hypertension: Code(s): I10 - Essential (primary) hypertension Category: Medical Plan In the recent echocardiogram, LVEF is 55-60%. Moderate septal hypertrophy. Mild aortic stenosis/regurgitation. Mild ascending aortic dilatation at 4.[address] chest from 2020, stable, abnormal parenchymal density in the right upper lobe and suspected interstitial changes at the lung bases. Coronary artery calcifications. Overall, no clear etiology for the shortness of breath based on the echocardiogram. We will also get an exercise stress perfusion imaging to look for obstructive CAD. If these are unremarkable, then probably pulmonary referral. With regard to the mildly enlarged ascending aorta, will need another echocardiogram in 1 year for follow-up. With regard to high blood pressure, regimen includes amlodipine, irbesartan. Borderline pressures today. Will need follow-up. Discussed with significant other. Orders: Orders CA stress test Today R06.02 - Shortness of breath, R07.2 - Precordial pain NM cardiolite stress test Today R06.02 - Shortness of breath, R07.2 - Precordial pain Coding Level of Care Code New Pt Level 4 (19472) Diagnoses Shortness of breath R06.02 Asymmetric septal hypertrophy I42.2 Nonrheumatic aortic (valve) stenosis I35.0 Ascending aorta dilatation I77.810 Essential hypertension I10 CPT Codes EKG - CPT: [id number], Complete ([id number])
[2023-08-12 12:40] VITALS: BP 140/72; PULSE 83; BMI 29.4
== END 2023-08-12 13:12 | disposition home or self-care (01) ==
PROVIDERS: PCP Internal Medicine; Visit Provider Internal Medicine
DX: R06.02 Shortness of breath (principal); I42.2 Other hypertrophic cardiomyopathy; I35.2 Nonrheumatic aortic (valve) stenosis with insufficiency; I77.810 Thoracic aortic ectasia; I10 Essential (primary) hypertension; R94.31 Abnormal electrocardiogram [ECG] [EKG]
CPT/HCPCS: 93010; 99214

== ENCOUNTER → 2023-08-12 12:37 | Outpatient (BNVA) | payer MEDICARE, SELFPAY | PROVIDERS: PCP Internal Medicine; Visit Provider Internal Medicine | DX: R06.02 Shortness of breath (principal); I42.2 Other hypertrophic cardiomyopathy; I35.0 Nonrheumatic aortic (valve) stenosis; I77.810 Thoracic aortic ectasia; I10 Essential (primary) hypertension | CPT/HCPCS: 93005; 99212 ==

== ENCOUNTER → 2023-09-30 09:15 | Outpatient (REF) | payer MEDICARE, SELFPAY ==
--- NOTE | ~2023-09-30 | NM_ITS ---
Exercise Myocardial perfusion study Indication: Precordial chest pain to evaluate for myocardial ischemia Technique: The patient was brought in for an exercise perfusion study on 09/30/2023. Patient performed exercise as per Ramiro protocol and was injected 30 mCi of sestamibi was given intravenously one target HR was achieved. Images were obtained using the SPECT gamma camera interlaced with the gating device. Images were obtained in supine position. Resting perfusion study was performed on 10/03/2023. Patient was administered 30 mCi of sestamibi intravenously at rest. Images were then obtained in supine position. Images obtained with and without CT attenuation. Total DLP 88 mGy-cm. Images were processed with the software and compared side to side in short axis, horizontal long axis and vertical long axis views. Findings: The stress perfusion study showed non attenuated images show moderately reduced uptake in the inferior, apical, inferolateral wall of the LV myocardium. Remainder of the LV myocardium is normally perfused. Attenuation corrected images show mildly to moderately reduced uptake in the apex of the LV myocardium. The gated study shows normal LV systolic function with calculated LVEF of 62%. LV cavity is mildly dilated in size. The gated study shows normal systolic wall thickening and contraction of all segments. There is no transient ischemic dilation. Resting study shows no change in perfusion pattern compared to stress perfusion study. Gating at rest reveals normal systolic wall motion with ejection fraction at greater than 60%. The findings are consistent with no clear reversible defect suggestive of ischemia. NM/NM cardiolite stress test Impression: 1. Normal myocardial perfusion 2. Gated LVEF is 62% 3. Transient ischemic dilatation not present but LV cavity is dilated Stress EKG is negative for ischemia
--- NOTE | 2023-09-30 09:26 | CA_ITS ---
Acquisition Time: 2023-09-30 10:37:12 Total Exercise Time: 00:05:00 Test Indications: SOB Medications: Protocol: BRITNEY Max HR: 144 BPM 94% of Pred: 152 BPM Max BP: 174/070 mmHG Max Work Load: 4.6 METS Exercise stress test exercise 5min of Britney protocol stage 1 achieving 94% MPHR, with moderat SOB, without chest discofmort, with isolated PVCs and Ventricular Bigeminy, with exaggerated blood pressure response, without EKG changes. Nuclear images pending. Breathign returned to baseline with rest. Test reviewed with Dr. Montemayor. Referred By: Vernon Ferrell Overread By: Lurdes Mcghee
== END ==
LOC: HO.CARD 09:15
PROVIDERS: Visit Provider Internal Medicine
DX: R07.2 Precordial pain (principal); R06.02 Shortness of breath
CPT/HCPCS: 78452; 93017; A9500

== ENCOUNTER → 2023-09-30 09:26 | Outpatient (BNV) | payer MEDICARE, SELFPAY | PROVIDERS: Visit Provider Nurse Practitioner | DX: R07.2 Precordial pain (principal) | CPT/HCPCS: 78452; 93016; 93018 ==

== ENCOUNTER 2023-11-26 10:36 | Outpatient (REF) | payer MEDICARE, SELFPAY ==
--- NOTE | ~2023-11-26 | XR_ITS ---
EXAMINATION: XR CHEST CLINICAL INFORMATION: Dyspnea COMPARISON: CT chest of 05/04/2020, chest x-ray 02/13/2018. TECHNIQUE: 2 views of the chest were obtained. FINDINGS: There is no gross pneumothorax. Heart size is normal. Mild bibasilar interstitial lung changes were better characterized on CT scan of 05/04/2020. Postsurgical changes of the cervical spine redemonstrated. Mild left basilar linear opacities. Degenerative changes in the thoracic spine. No pleural effusion. XR/XR chest 2V IMPRESSION: Mild bibasilar interstitial lung changes were better characterized on CT scan of 05/04/2020. Mild left basilar linear opacities. This study was presented today 11/26/2023 for interpretation. Stat results provided at this time as requested by referring provider. Electronically signed by: Luz Marina Holt MD 11/26/2023 01:30 PM EDT RP
== END 2023-11-26 10:37 | disposition home or self-care (01) ==
LOC: HO.XRAY 10:36
PROVIDERS: PCP Internal Medicine; Visit Provider Hospitalist
DX: R06.00 Dyspnea, unspecified (principal); G47.33 Obstructive sleep apnea (adult) (pediatric); R91.8 Other nonspecific abnormal finding of lung field; R05.3 Chronic cough; J44.9 Chronic obstructive pulmonary disease, unspecified
CPT/HCPCS: 71046; 99212

== ENCOUNTER 2023-11-26 10:36 | Outpatient (AMB) | payer MEDICARE, SELFPAY ==
[2023-11-26 10:40] VITALS: BP 136/70; PULSE 72; O2SAT 98; BMI 29.7
--- NOTE | 2023-11-26 10:40 | A.OFFVIS_ITS ---
Vital Signs 11/26/23 10:40 Height 5 ft 10 in Weight 207 lb 3.752 oz BMI 29.7 BP 136/70 Blood Pressure Location Lt brachial Position Sitting Pulse 72 Pulse Source Pulse Oximeter Pulse Oximetry (%) 98 Oxygen Delivery Method Room Air Intake Visit Reasons: COPD/RITA [employer] Required: No Allergies amoxicillin [Augmentin] Allergy (Unknown, Verified 11/26/23 10:43) hives clavulanic acid [Augmentin] Allergy (Unknown, Verified 11/26/23 10:43) hives levofloxacin [Levaquin] Allergy (Unknown, Verified 11/26/23 10:43) hives Penicillins [PENICILLINS] Allergy (Unknown, Unverified 11/26/23 10:43) ANAPHYLAXIS Sulfa (Sulfonamide Antibiotics) Allergy (Unknown, Verified 11/26/23 10:43) rash HPI Comments Details: 67 year old former smoker quit many years ago who initially presented with a pnemonia early this year. He had at least two courses of antibiotics, one of which he had a reaction to and ultimately he did improve symptomatically somewhat but there were still infiltrates/changes on chest xray that persisted. For this reason, a CT chest was done on 07/26/16 which was reviewed by me mallorie madrigal as well. There are several ggo areas in the right upper lobe which I would expect with history above. Also there is a spiculated cavitary lesion in the right upper lobe (2.5 cm) as well as a spiculated lesion in the right middle lobe (3.6cm) which could be consistent with scar or resolving pneumonia versus malignant lesions. Subsequent CT scans demonstrated slight decrease in the nodular density which is reassuring. Although still spiculated in nature and is concerning in appearance. On further questioning the patient does complaint of a cough. The cough tends to be nonproductive in nature. Usually worse at nighttime. He does take medications for acid reflux. We did look at his pulmonary function studies and they do demonstrated mild COPD. The patient does have a rescue inhaler but he is not aware when to use it correctly. At this point I will send him a prescription of inhaler he would use use daily to see if there is any improvement in his cough. He can try that for a month. In addition to that he has significant snoring. The is present and she is concerned that he stops breathing at nighttime. He does have issues with his memory and also is getting significant daytime drowsiness. His [place] score is elevated 12/24. At this point with his ongoing memory issues and daytime drowsiness the patient should have a home sleep study requested. 11/26/2023 the patient is here for a pulmonary follow-up visit. The patient has been lost to follow-up now for the last few years. He presents back with shortness a breath. He is here with his . He states that he goes for his daily walks with his dog and he does get short of breath when going up a flight of stairs. The patient does not have any inhalers at this time. He did have a full cardiac workup which was reassuring. He did smoke in the past but quit about 30 years ago. Previously he did have PFTs demonstrating some mild obstruction. We had tried Breo at the time but I am not sure if he took it. He also had a CT scan of the chest back in 2020 which I personally reviewed and was compared to a CT scan that he had in 2019. He did have a pulmonary nodule although this was completely stable unchanged since 2019. Therefore likely all benign findings. We did go briefly for walking oximetry. His oxygen was stable throughout the ambulation in his heart rate as well. He was just mildly dyspneic. The major issue that I noticed was that he did have some issues with his balance coordination and his muscle strength. He also had bilateral knee replacements that may be contributing. All these findings definitely play a role in his dyspnea symptoms as he is having increased work for the same effect. Will go ahead and plan to do pulmonary function studies and repeat an x-ray at this time. On further questions the patient does have underlying daytime drowsiness. He does have headaches in the morning, +snorring and apneic episodes documented by his . The patient does have [place] score of 12/24. He was supposed to have home sleep study in the past. He never had it. This was during the pandemic. Will go ahead and request a sleep study at this time. [facility] Medical History (Updated 11/26/23 @ 21:39 by Audie Haque MD) Dyspnea Dyspnea on minimal exertion Asymmetric septal hypertrophy Chronic insomnia Sensorineural hearing loss (SNHL) of both ears Systolic murmur of aorta Bilateral carotid bruits Renal insufficiency Insomnia Hx of gout Anemia Decreased hearing BPH associated with nocturia COPD (chronic obstructive pulmonary disease) Cough RITA (obstructive sleep apnea) Pulmonary nodules Dyslipidemia Essential hypertension Surgical History History of surgery History of arthroscopy of left knee History of inguinal hernia History of ankle surgery Family History Father Cancer of prostate Alcoholism HTN (hypertension) CVD (cardiovascular disease) Mother COPD (chronic obstructive pulmonary disease) Cancer of pancreas Sister Depression Brother No problems noted. Sister No problems noted. Daughter No problems noted. Social History Housing: Condominium Patient Tobacco Use Status: Former Tobacco user e-Cigarette/Vaping Use: Never Used service: No Current occupational status: retired Cognitive needs: No Hearing needs: No Vision needs: Yes Review of Systems Const Reports daytime sleepiness, Reports difficulty sleeping, Reports fatigue, Reports malaise, Denies night sweats, Reports snoring and Reports stops breathing during sleep ENT Denies change in voice, Denies lip swelling, Denies mouth pain, Reports nasal congestion, Reports nasal discharge and Denies tongue swelling Card Denies chest pain and Reports dyspnea on exertion Resp Reports cough, Reports dyspnea on exertion and Reports snoring GI Denies abdominal pain Musc Reports as per HPI and Reports abnormal gait Neuro Denies Neuro-related abnormal movements, Reports abnormal gait and Reports memory loss Psych Denies no additional complaints and Reports memory loss Endo Reports fatigue Deniz/Lymph Denies easy bleeding and Denies lymphadenopathy Aller/Immun Denies lip swelling and Denies tongue swelling Physical Exam Vital Signs: Last Vital Signs Pulse 72 11/26/23 10:40 BP 136/70 11/26/23 10:40 Pulse Ox 98 11/26/23 10:40 Oxygen Delivery Method Room Air 11/26/23 10:40 BMI result Body Mass Index 29.7 Const General: alert HEENT General nose exam: Abnormal external nose present and Nasal discharge present Neck Neck: Yes normal visual inspection, Yes full ROM and Yes no lymphadenopathy Chest Chest palpation & inspection: normal inspection of the chest Resp Effort & Inspection: normal respiratory effort Auscultation: diminished lung sounds Cardio Rate: regular rate Rhythm: regular rhythm Heart sounds: S1 normal heart sound present and S2 normal heart sound present GI Palpation (GI): Soft to palpation and nontender Auscultation: normal bowel sounds Assessment & Plan Assessment & Plan (1) RITA (obstructive sleep apnea): Code(s): G47.33 - Obstructive sleep apnea (adult) (pediatric) Category: Medical (2) Pulmonary nodules: Code(s): R91.8 - Other nonspecific abnormal finding of lung field Category: Medical (3) Cough: Code(s): R05 - Cough Category: Medical Qualifiers: Cough type: chronic Qualified Code(s): R05.3 - Chronic cough (4) COPD (chronic obstructive pulmonary disease): Code(s): J44.9 - Chronic obstructive pulmonary disease, unspecified Category: Medical Qualifiers: COPD type: unspecified COPD Qualified Code(s): J44.9 - Chronic obstructive pulmonary disease, unspecified (5) Dyspnea: Code(s): R06.00 - Dyspnea, unspecified Category: Medical Qualifiers: Dyspnea type: dyspnea on exertion Qualified Code(s): R06.09 - Other forms of dyspnea Plan CXR PFTs Home PSG consider repeating CT chest F/U 2-3 months Orders: Orders XR chest 2V Today R06.00 - Dyspnea, unspecified PFT pulmonary function test Today R06.00 - Dyspnea, unspecified Coding Level of Care Code Est Pt Level 4 (08232) Diagnoses RITA (obstructive sleep apnea) G47.33 Pulmonary nodules R91.8 Chronic cough R05.3 Cough type: chronic Chronic obstructive pulmonary disease, unspecified COPD type J44.9 COPD type: unspecified COPD Dyspnea on exertion R06.09 Dyspnea type: dyspnea on exertion Time Spent (min) 18
== END 2023-11-26 11:10 | disposition home or self-care (01) ==
PROVIDERS: PCP Internal Medicine; Visit Provider Hospitalist
DX: G47.33 Obstructive sleep apnea (adult) (pediatric) (principal); R91.8 Other nonspecific abnormal finding of lung field; R05.3 Chronic cough; J44.9 Chronic obstructive pulmonary disease, unspecified; R06.09 Other forms of dyspnea
CPT/HCPCS: 99214

== ENCOUNTER 2024-09-07 11:29 | Outpatient (REF) | payer MEDICARE, SELFPAY ==
[2024-09-07 13:32] LABS: MANUAL DIFF FLAG NO
[2024-09-07 13:45] LABS: Hematocrit 34.9 % (42.0-52.0); Hemoglobin 11.7 g/dl (14.0-18.0); Imm Gran Abs Auto 0.04 X10*3/uL (0.00-0.03); Imm Gran Pct Auto 0.6 % (0.0-0.4); Lymphocytes Absolute Auto 1.5 X10*3/uL (1.2-4.9); Mean Corpuscular HGB Conc 33.5 g/dl (31.0-36.0); Mean Corpuscular Hemoglobin 30.9 pg (27.0-33.0); Mean Corpuscular Volume 92.1 fL (80.0-98.0); NRBC Abs Auto 0.000 X10*3/uL (0.0-0.012); NRBC Pct Auto 0.0 /100WBC (0.0-0.2); Platelet Count 231 X10*3/uL (160-400); Red Blood Count 3.79 X10*6/uL (4.60-5.80); White Blood Count 7.2 X10*3/uL (4.8-10.8)
[2024-09-07 14:26] LABS: PSA,Total (Free>4and<10) 0.91 ng/mL (0.00-4.00)
[2024-09-07 15:10] LABS: Alanine Aminotransferase 30 U/L (0-40); Anion Gap 11 (12-20); Aspartate Amino Transferase 46 U/L (5-37); Blood Urea Nitrogen 37 mg/dL (9-16); Calcium 9.1 mg/dL (8.4-10.2); Carbon Dioxide 26 mmol/L (22-29); Chloride 106 mmol/L (96-108); Cholesterol 157 mg/dL (<200); Estimated Glomerular Filt Rate 50; HDL Cholesterol 84 mg/dL (>40); Iron 116 mcg/dL (45-160); Percent Iron Saturation 39 % (15-50); Potassium 4.4 mmol/L (3.3-5.1); Sodium 139 mmol/L (135-145); Total Iron Binding Capacity 298 mcg/dL (228-428); Triglycerides 47 mg/dL (<150); Unsaturated Iron Binding 182 ug/dL; Uric Acid 3.5 mg/dL (3.4-7.0)
== END 2024-09-07 11:30 | disposition home or self-care (01) ==
LOC: HO.HMGCLDS 11:29
PROVIDERS: PCP Internal Medicine; Visit Provider Internal Medicine
DX: I42.2 Other hypertrophic cardiomyopathy (principal); I35.0 Nonrheumatic aortic (valve) stenosis; I77.810 Thoracic aortic ectasia; F41.1 Generalized anxiety disorder; I10 Essential (primary) hypertension; E78.5 Hyperlipidemia, unspecified; N28.9 Disorder of kidney and ureter, unspecified; D64.9 Anemia, unspecified; J44.9 Chronic obstructive pulmonary disease, unspecified; F51.04 Psychophysiologic insomnia; Z79.899 Other long term (current) drug therapy; Z13.30 Encounter for screening examination for mental health and behavioral disorders, unspecified; Z13.31 Encounter for screening for depression; N40.1 Benign prostatic hyperplasia with lower urinary tract symptoms; R35.1 Nocturia; Z87.39 Personal history of other diseases of the musculoskeletal system and connective tissue; Z12.5 Encounter for screening for malignant neoplasm of prostate
CPT/HCPCS: 36415; 80048; 80061; 83540; 84153; 84450; 84460; 84550; 85025; 96127; 99212

== ENCOUNTER 2024-09-07 11:29 | Outpatient (AMB) | payer MEDICARE, SELFPAY ==
--- OUTSIDE RECORDS SUMMARY | 2024-09-07 12:25 | XMS_ITS | Clinical Summary ---
Author Organization [facility] Facility Address [address] [place] [id number] Care Team Providers Care Appointment Coordinator Name Role Phone Edwar Lima MD Primary Care Provider [phone] Allergies Active Allergy Reactions Criticality Noted Date Comments Penicillins 09/05/2022 hives, swelling Sulfa Antibiotics 09/05/2022 Medications zolpidem (AMBIEN) 10 MG tablet Take 10 mg by mouth at night if needed 08/23/2022 Active PARoxetine (PAXIL) 40 MG tablet Take 40 mg by mouth 1 (one) time each day 08/20/2022 Active omeprazole OTC (PriLOSEC OTC) 20 MG EC tablet Take 20 mg by mouth 10/06/2018 Active irbesartan (AVAPRO) 300 MG tablet 06/13/2022 Active hydrOXYzine (ATARAX) 25 MG tablet TAKE 1 TABLET BY MOUTH TWICE DAILY NEEDED FOR ACUTE ANXIETY 09/01/2022 Active finasteride (PROSCAR) 5 MG tablet Take 5 mg by mouth 1 (one) time each day 07/31/2022 Active Docusate Sodium (COLACE PO) Take 100 mg by mouth 07/31/2019 Active atorvastatin (LIPITOR) 40 MG tablet 06/13/2022 Active amLODIPine (NORVASC) 10 MG tablet 08/24/2022 Active allopurinol (ZYLOPRIM) 300 MG tablet 08/24/2022 Active acetaminophen (TYLENOL) 325 MG tablet Take 650 mg by mouth 07/31/2019 Active Active Problems Problem Noted Date Diagnosed Date Essential (primary) hypertension 01/02/2023 Chronic obstructive pulmonary disease 01/02/2023 Gout 01/02/2023 Anemia, not otherwise specified 01/02/2023 Dyslipidemia 01/02/2023 Family History Medical History Relation Comments Cancer Father Hypertension Father Cancer Mother Relation Status Comments Father Mother Social History Tobacco Use Types Packs/Day Years Used Date Smoking Tobacco: Former Cigarettes Smokeless Tobacco: Never Tobacco Cessation:Counseling Given: Not Answered Alcohol Use Standard Drinks/Week Comments Never 0 (1 standard drink = 0.6 oz pur e alcohol) Sex and Gender Information Value Date Recorded Sex Assigned at Not on file Legal Sex Male 2:15 PM EDT Gender Identity Not on file Sexual Orientation Not on file Plan of Treatment Health Maintenance Due Date Last Done Comments Colorectal Cancer Screening: Annual FOBT 12/15/2003 Colorectal Cancer Screening: Colonoscopy 12/15/2003 Colorectal Cancer Screening: Sigmoidoscopy 12/15/2003 Pneumococcal Vaccine: 50+ Ye ars (1 of - PCV) 2004 Influenza Vaccine (Season Ended) 2024 Hepatitis B Vaccine Aged Out No longe r eligible based on patient's age to complete this topic Insurance Medicare [facility] Care Teams Appointment Coordinator Relationship Specialty Start Date End Date Edwar Lima MD [facility] [place] [address] PCP - General Internal Medicine 06/19/22
--- OUTSIDE RECORDS SUMMARY | 2024-09-07 12:25 | XMS_ITS ---
Author Name [facility] Organization Unknown Care Team Organization Name Specialty Phone Email Start Date End [facility] 04/08/2024
--- NOTE | 2024-09-07 12:35 | A.OFFPC_ITS ---
Vital Signs 09/07/24 12:39 Height 5 ft 10 in Weight 211 lb BMI 30.3 BP 140/72 H Blood Pressure Location Lt brachial Position Sitting Respiration 16 Pulse 71 Pulse Source Pulse Oximeter Temp 98.0 F Temp Source Oral Pulse Oximetry (%) 96 Oxygen Delivery Method Room Air Intake Visit Reasons: Follow up care Intake Note: Pt is here today for his f/u care Allergies amoxicillin (Augmentin) Allergy (Unknown, Verified 09/07/24 12:53) hives clavulanic acid (Augmentin) Allergy (Unknown, Verified 09/07/24 12:53) hives levofloxacin (Levaquin) Allergy (Unknown, Verified 09/07/24 12:53) hives Penicillins (PENICILLINS) Allergy (Unknown, Unverified 09/07/24 12:53) ANAPHYLAXIS Sulfa (Sulfonamide Antibiotics) Allergy (Unknown, Verified 09/07/24 12:53) rash Medication List - Last Reconciled 09/07/24 by Yaquelin Lima MD allopurinol 300 mg PO DAILY amlodipine 10 mg PO DAILY atorvastatin 40 mg PO DAILY finasteride 5 mg PO DAILY hydroxyzine HCl 25 mg PO BID PRN irbesartan 300 mg PO DAILY multivitamin 1 tab PO DAILY omeprazole 20 mg PO DAILY paroxetine HCl 40 mg PO DAILY zolpidem 10 mg PO BEDTIME PRN Tobacco use date assessed: 09/07/24 Fall risk assessment: No Falls in past year Last assessed Fall Risk: 09/07/24 Dental Screening Dental Screen Date: 09/07/24 Did you have a dental visit in the last 12 months?: Yes Was dental information given to patient?: Patient has dentist HPI Follow up care HPI Details 68-year-old male history of hypertension , hyperlipidemia, chronic insomnia and chronic kidney disease, here today for follow-up. Has been taking his medicines as directed, denies any chest pain or any persistent shortness of breath or lightheadedness. Not yet had his fasting labs done. No new complaints at present time. He however has not followed up with Cardiology with regards to his ascending aorta dilatation and nonrheumatic aortic valve stenosis. He also did not follow-up after completion of his stress test done last year discuss results. He takes Paxil for his generalized anxiety disorder which has been helping. Takes zolpidem 10 mg at bedtime for insomnia ON LICENSE OF [facility] Medical History Dyspnea on minimal exertion Asymmetric septal hypertrophy Chronic insomnia Sensorineural hearing loss (SNHL) of both ears Systolic murmur of aorta Bilateral carotid bruits Renal insufficiency Hx of gout Anemia Decreased hearing BPH associated with nocturia COPD (chronic obstructive pulmonary disease) RITA (obstructive sleep apnea) Pulmonary nodules Dyslipidemia Essential hypertension Surgical History History of surgery History of arthroscopy of left knee History of inguinal hernia History of ankle surgery Family History Father Cancer of prostate Alcoholism HTN (hypertension) CVD (cardiovascular disease) Mother COPD (chronic obstructive pulmonary disease) Cancer of pancreas Sister Depression Brother No problems noted. Sister No problems noted. Daughter No problems noted. Social History [facility] Patient Tobacco Use Status: Former Tobacco user e-Cigarette/Vaping Use: Never Used service: No Current occupational status: retired Cognitive needs: No Hearing needs: No Vision needs: Yes Questionnaire PHQ-9 Over the last 2 weeks, how often have you been bothered by any of the following problems? 1. Little interest or pleasure in doing things: not at all 2. Feeling down, depressed, or hopeless: not at all 3. Trouble falling or staying asleep, or sleeping too much: not at all 4. Feeling tired or having little energy: not at all 5. Poor appetite or overeating: not at all 6. Feeling bad about yourself - or that you are a failure or have let yourself or your family down: not at all 7. Trouble concentrating on things, such as reading the newspaper or watching television: not at all 8. Moving or speaking so slowly that other people could have noticed. Or the opposite - being so fidgety or restless that you have been moving around a lot more than usual: not at all 9. Thoughts that you would be better off or of hurting yourself in some way: not at all Total score: 0 Depression Screening Interpretation: Negative Depression Screening Done: Yes 01991 - PHQ-9 Billing: Yes Source: Developed by Drs. Nash Rose, Pinky Huerta, Chilango Torres and colleagues, with an educational nanci from [email or web address]. Thrive Questionnaire Date Thrive assessed: 09/07/24 I am a: Patient What is your living situation today?: I have a steady place to live Within the past 12 months, did the food you bought not last and you didn't have the money to get more?: I choose not to answer this question Within the past 12 months, did you worry whether your food would run out before you got money to buy more?: I choose not to answer this question Do you have trouble paying for medicines?: I choose not to answer this question Do you have trouble getting transportation to medical appointments?: I choose not to answer this question Do you have trouble paying your heating and electricity bill?: I choose not to answer this question Do you have trouble taking care of your child, family member or friend?: I choose not to answer this question Do you have trouble with day-to-day activities such as bathing, preparing meals, shopping, managing finances, etc.?: I choose not to answer this question Are you currently unemployed and looking for a job?: I choose not to answer this question Are you interested in more education?: I choose not to answer this question Please select the resources that you would like help with: None Currently or been in a relationship where the following occur: I choose not to answer THRIVE Score: 0 AUDIT C Alcohol Use Questionnaire (AUDIT-C) 1. How often do you have a drink containing alcohol?: Monthly or less 2. How many drinks containing alcohol do you have on a typical day when you are drinking?: 1 or 2 3. How often do you have six or more drinks on one occasion?: Never Total Score: 1 EN-7 AMB Questionnaire EN-7 Date EN - 7 assessed: 09/07/24 Feeling nervous, anxious, or on edge: 0 = Not at all Not being able to stop or control worryin = Not at all Worrying too much about different things: 0 = Not at all Trouble relaxin = Not at all Being so restless that it is hard to sit still: 0 = Not at all Becoming easily annoyed or irritable: 0 = Not at all Feeling afraid as if something awful might happen: 0 = Not at all Total EN-7 score (0-4 normal; 5-9 mild; 10-14 moderate; 15-21 severe): 0 Source: Developed by Drs. Nash Rose, Pinky Huerta, Chilango Torres and colleagues, with an educational nanci from [email or web address]. EN-7 Assessment Billing EN-7 Assessment Tool: EN-7 Assessment 51271 Review of Systems Const Reports no additional complaints, Denies fatigue, Denies poor appetite and Denies weakness Eyes Denies change in vision ENT Denies dizziness Card Denies chest pain, Denies chest pain with activity, Denies syncope, Denies rapid heart rate, Denies edema, Denies lightheadedness and Denies palpitations Resp Denies cough GI Reports no additional complaints Reports no additional complaints Musc Denies abnormal gait, Denies muscle cramps and Denies muscle weakness Neuro Denies abnormal gait, Denies dizziness, Denies syncope and Denies weakness Psych Reports no additional complaints Endo Denies fatigue and Denies palpitations Physical exam (Primary Care) Vital Signs: Last Vital Signs Temp 98.0 F 09/07/24 12:39 Pulse 71 09/07/24 12:39 Resp 16 09/07/24 12:39 BP 140/72 H 09/07/24 12:39 Pulse Ox 96 09/07/24 12:39 Oxygen Delivery Method Room Air 09/07/24 12:39 BMI result Body Mass Index 30.3 Tobacco/Smoking Status: Tobacco use Status Tobacco use date assessed 09/07/24 09/07/24 12:36 Patient Tobacco Use Status Former Tobacco user 09/07/24 12:36 e-Cigarette/Vaping Use Never Used 09/07/24 12:36 PHQ-9: PHQ-9 Score PHQ-9: Total score 0 09/13/24 15:42 Depression Screening Interpretation: Negative Thrive Assessment: Date of Thrive Assessment Date Thrive assessed 09/07/24 09/07/24 12:36 Currently or been in a relationship where the following occur: I choose not to answer Const Other: Alert oriented x3, no acute cardiorespiratory distress noted, ambulatory with normal gait Orientation/consciousness: patient oriented x3 HENMT Head: Yes normocephalic General nose exam: Normal external nose present Face and sinus: Yes face symmetric Mouth: oropharynx normal and moist mucous membranes Eyes General: appearance normal, both eyes and all related structures Neck Neck: Yes full ROM, Yes no lymphadenopathy and Yes supple Thyroid: Thyroid normal Resp Effort & Inspection: normal respiratory effort and able to speak in complete sentences Auscultation: clear to auscultation bilaterally Cardio Other: S1-S2 present regular rate and rhythm, systolic murmur at right sternal border GI Inspection: Yes normal to inspection Palpation (GI): Soft to palpation, nontender, no guarding and no masses Auscultation: normal bowel sounds Skin General skin exam: no rashes or lesions noted Neuro General: patient oriented x3, gait normal, tone normal, moves all extremities, Normal light touch and pain sensation, no focal motor deficits and CN's II-XI intact bilaterally Extrem General: Yes full ROM, Yes no joint enlargement, Yes no pedal edema and Yes normal gait Psych Appearance: grossly normal Mental Status: mental status grossly normal Speech and movement: Normal speech and movement present Attitude: cooperative Thought process: Normal thought process present Results Reviewed Results Reviewed: Name: Gerry Brennan Age/Sex: 68/M : 1955 Unit#: [id number] Attend Dr: Yaquelin Lima MD Re09/07/24 Status: DEP REF Location: [facility] Disch: SPEC : [id number] LISA: 09/07/24 STATUS: COMP REQ : [id number] RECD: 09/07/[address]: Yaquelin Lima MD COMP: 09/07/24 ENTERED: 09/07/24 [facility] DR: ORDERED: CBC Auto Diff Test Result Flag Reference WBC 7.2 4.8-10.8 X10*3/uL RBC 3.79 L 4.60-5.80 X10*6/uL HGB 11.7 L 14.0-18.0 g/dl HCT 34.9 L 42.0-52.0 % MCV 92.1 80.0-98.0 fL MCH 30.9 27.0-33.0 pg MCHC 33.5 31.0-36.0 g/dl RDW 15.4 11.0-16.0 % PLT 231 160-400 X10*3/uL MPV 10.7 9.4-12.4 fL Neut Pct Auto 56.8 45-73 % ImGran Pct Auto 0.6 H 0.0-0.4 % Lymp Pct Auto 21.1 20-40 % [place] Pct Auto 14.7 H 2-11 % Eos Pct Auto 6.0 H 0-4 % Baso Pct Auto 0.8 0-2 % NRBC Pct Auto 0.0 0.0-0.2 /100WBC ANC Neut Abs # 4.1 2.0-8.3 x10*3/uL ImGran Abs Auto 0.04 H 0.00-0.03 X10*3/uL Lymph Abs Auto 1.5 1.2-4.9 X10*3/uL [place] Abs Auto 1.1 0.1-1.2 X10*3/uL Eos Abs Auto 0.4 0.0-0.4 X10*3/uL Baso Abs Auto 0.1 0.0-0.2 X10*3/uL NRBC Abs Auto 0.000 0.0-0.012 X10*3/uL Name: Gerry Brennan Age/Sex: 68/M : 1955 Unit#: [id number] Attend Dr: Yaquelin Lima MD Re09/07/24 Status: DEP REF Location: [facility] Disch: SPEC : [id number] LISA: 09/07/24 STATUS: COMP REQ : [id number] RECD: 09/07/[address]: Yaquelin Lima MD COMP: 09/07/24 ENTERED: 09/07/24 [facility] DR: ORDERED: Met Prof Fast, Uric, IRON PROF, AST, ALT, Lipid Panel Test Result Flag Reference Sodium 139 135-145 mmol/L Potassium 4.4 3.3-5.1 mmol/L CL 106 96-108 mmol/L CO2 26 22-29 mmol/L Gap 11 L 12-20 BUN 37 H 9-16 mg/dL Creat 1.41 H 0.5-1.4 mg/dL eGFR 50 Chronic Kidney Disease: Estimated GFR < 60 mL/min/1.73m2 Severe Kidney Disease: Estimated GFR < 15 mL/min/1.73m2 FBS 96 60-99 mg/dL Uric Acid 3.5 3.4-7.0 mg/dL CA 9.1 8.4-10.2 mg/dL Iron 116 45-160 mcg/dL TIBC 298 228-428 mcg/dL Saturation 39 15-50 % UIBC 182 ug/dL AST (GOT) 46 H 5-37 U/L ALT (GPT) 30 0-40 U/L Triglyceride 47 <150 mg/dL Desirable Triglyceride: less than 150 mg/dL Borderline High Triglyceride 150-199 mg/dL High Triglyceride: 200-499 mg/dL Very High Triglyceride: greater than or equal to 5OO mg/dL Cholesterol 157 <200 mg/dL Desirable Cholesterol: less than 200 mg/dL Borderline High Cholesterol: 200-239 mg/dL High Cholesterol: greater than 239 mg/dL LDL Calculated 64 <100 mg/dL Desirable LDL: less than 100 mg/dL Near Optimal/Above Optimal LDL: 110-129 mg/dL Borderline High LDL: 130-159 mg/dL High LDL: 160-189 mg/dL Very High LDL: greater than or equal to 190 mg/dL HDL 84 >40 mg/dL Desirable HDL: greater than 40 mg/dL Note: This HDL assay may give artificially low results in patients with liver disease. Coding Level of Care Code Est Pt Level 4 (24975) Diagnoses Asymmetric septal hypertrophy I42.2 Nonrheumatic aortic (valve) stenosis I35.0 Ascending aorta dilatation I77.810 Generalized anxiety disorder F41.1 Essential hypertension I10 Dyslipidemia E78.5 Renal insufficiency N28.9 Anemia, unspecified type D64.9 Anemia type: unspecified type Chronic obstructive pulmonary disease, unspecified COPD type J44.9 COPD type: unspecified COPD Chronic insomnia F51.04 Additional Codes EN-7 Assessment Billing - EN-7 Assessment Tool: EN-7 Assessment 33430 ([id number]) PHQ-9 - 05536 - PHQ-9 Billing: Yes ([id number]) Assessment & Plan Assessment & Plan (1) Asymmetric septal hypertrophy: Code(s): I42.2 - Other hypertrophic cardiomyopathy Category: Medical Plan: Referred back to Cardiology for yearly follow-up. (2) Nonrheumatic aortic (valve) stenosis: Code(s): I35.0 - Nonrheumatic aortic (valve) stenosis Category: Medical Plan: Referred back to Cardiology for her yearly follow-up (3) Ascending aorta dilatation: Code(s): I77.810 - Thoracic aortic ectasia Category: Medical Plan: Referral back to Cardiology for yearly follow-up (4) Generalized anxiety disorder: Code(s): F41.1 - Generalized anxiety disorder Category: Medical Plan: Continue on paroxetine 40 mg daily (5) Essential hypertension: Code(s): I10 - Essential (primary) hypertension Category: Medical Plan: Systolic blood pressure mildly elevated. Continued on amlodipine 10 mg daily and your irbesartan 300 mg once a day. Has decreased renal function, Nephrology consult ordered (6) Dyslipidemia: Code(s): E78.5 - Hyperlipidemia, unspecified Category: Medical Plan: Fasting lipids are within normal limits, continued on atorvastatin 40 mg daily (7) Renal insufficiency: Code(s): N28.9 - Disorder of kidney and ureter, unspecified Category: Medical Plan: Has been referred to nephrology in 2022 but no visits on record. Will refer back to nephrology for further evaluation management (8) Anemia: Code(s): D64.9 - Anemia, unspecified Category: Medical Qualifiers: Anemia type: unspecified type Qualified Code(s): D64.9 - Anemia, unspecified Plan: Serum iron levels are within normal limits. He was referred last year to [facility], Dr. Moni Dacosta, patient states that he will schedule own appointment, no consult received, will confirm whether patient was seen . If not will reschedule him to see GI for further evaluation for his anemia. (9) COPD (chronic obstructive pulmonary disease): Code(s): J44.9 - Chronic obstructive pulmonary disease, unspecified Category: Medical Qualifiers: COPD type: unspecified COPD Qualified Code(s): J44.9 - Chronic obstructive pulmonary disease, unspecified Plan: Followed by [facility] Pulmonary (10) Chronic insomnia: Code(s): F51.04 - Psychophysiologic insomnia Category: Medical Plan: Currently on zolpidem 10 mg at bedtime as needed, refill sent Orders: Referrals Cardiology Referral I35.0 - Nonrheumatic aortic (valve) stenosis, I42.2 - Other hypertrophic cardiomyopathy, I77.810 - Thoracic aortic ectasia Nephrology Referral I10 - Essential (primary) hypertension, N28.9 - Disorder of kidney and ureter, unspecified Medications: Refilled zolpidem 10 mg PO BEDTIME PRN 30 tabs 0RF insomnia
[2024-09-07 12:39] VITALS: BP 140/72; PULSE 71; RESP 16; TEMP 36.7; O2SAT 96; BMI 30.3
== END 2024-09-07 13:04 | disposition home or self-care (01) ==
LOC: HO.HMCC 11:29
PROVIDERS: PCP Internal Medicine; Visit Provider Internal Medicine
DX: I42.2 Other hypertrophic cardiomyopathy (principal); J44.9 Chronic obstructive pulmonary disease, unspecified; I35.0 Nonrheumatic aortic (valve) stenosis; I77.810 Thoracic aortic ectasia; F41.1 Generalized anxiety disorder; I10 Essential (primary) hypertension; E78.5 Hyperlipidemia, unspecified; N28.9 Disorder of kidney and ureter, unspecified; D64.9 Anemia, unspecified; F51.04 Psychophysiologic insomnia